=== PATIENT | male | born 1985 | race Caucasian/White ===

== ENCOUNTER 2017-12-04 18:35 | Emergency (ER) | payer OTHER ==
[~2017-12-04] VITALS: Ht 175.3 cm; Wt 72.6 kg
== END 2017-12-04 21:56 | disposition home or self-care (01) ==
LOC: ER 18:35
DX: S60.011A Contusion of right thumb without damage to nail, initial encounter (principal); W23.0XXA Caught, crushed, jammed, or pinched between moving objects, initial encounter; Y93.89 Activity, other specified; Y92.89 Other specified places as the place of occurrence of the external cause; Y99.8 Other external cause status